=== PATIENT | female | born 1970 | race African-American/Black ===

== ENCOUNTER 2017-01-24 08:26 | Emergency (ER) | payer OTHER ==
[~2017-01-24] VITALS: Ht 165.1 cm; Wt 68.0 kg
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
[2017-01-24] MEDS ORDERED: IBUPROFEN600 MG ORAL (09:35)
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
[2017-01-24 10:08] VITALS: BP 177/89
[2017-01-24 10:10] VITALS: BP 177/89
== END 2017-01-24 10:11 | disposition home or self-care (01) ==
LOC: EMR 09:03
DX: S00.83XA Contusion of other part of head, initial encounter (principal); M54.2 Cervicalgia; Y09 Assault by unspecified means; Y93.9 Activity, unspecified; Y92.9 Unspecified place or not applicable
CPT/HCPCS: 70486; 99284

== ENCOUNTER 2019-01-01 08:28 | Emergency (ER) | payer OTHER ==
[~2019-01-01] VITALS: Ht 170.2 cm; Wt 81.6 kg
[~2019-01-01 08:28] MED LIST: IBUPROFEN600 MG ORAL
[2019-01-01] MEDS ORDERED: NKM (08:34)
[2019-01-01 08:38] VITALS: BP 177/94
--- NOTE | 2019-01-01 08:41 | NUR ---
ED Nurse Note: Patient present at ER c/o Rt earache 06/15. Pt aao x4 and reported that she had flu like a symptom and has been blowing her nose a lot. skin clean and intact. clear nose drainage and yellow scant ear drainage noted. per pt, Rt ear hearing decreased since she started having earache.
--- NOTE | 2019-01-01 08:45 | Emergency Room Report ---
History of Present Illness General Chief Complaint: Earache Source: Patient Present Illness HPI Patient presents with complaints of pain to her right ear Reports that the pain has worsened over the past 2 days Patient has had recent runny nose congestion sore throat Reports taking Benadryl which helped minimally Denies any headache She reports that she has been miserable over the last several days with increased pain as well There has been some discharge noticed from that region Denies any recent trauma Allergies: Coded Allergies: No Known Allergies (Unverified , 01/24/17) Patient History Past Medical History: see triage record Pertinent Family History: none Last Menstrual Period: 2 months ago Reviewed Nursing Documentation: PMH: Agreed; PSxH: Agreed Nursing Documentation-PMH Past Medical History: No Stated History Review of Systems All Other Systems: negative except mentioned in HPI Physical Exam Vital Signs Date Time Temp Pulse Resp B/P (MAP) Pulse Ox O2 Delivery O2 Flow Rate FiO2 01/01/19 08:31 98.4 86 14 177/94 96 Room Air Sp02 EP Interpretation: reviewed, normal General Appearance: well appearing, no apparent distress Head: normocephalic, atraumatic Eyes: bilateral eye PERRL, bilateral eye EOMI ENT: other - The right canal appears edematous however still patent, tympanic membrane is also bulging and erythematous Neck: supple, no meningismus Respiratory: lungs clear, no retraction Cardiovascular #1: regular rate, rhythm, no edema Gastrointestinal: non tender, soft Musculoskeletal: normal inspection Neurologic: alert, oriented x3, responsive Skin: normal color, no rash Lymphatic: no adenopathy Medical Decision Making Diagnostic Impression: Primary Impression: Otitis media Additional Impression: Otitis externa ER Course Patient's clinical history exam and findings are consistent with what appears to be otitis media and otitis externa Patient provided with appropriate medication Will require close repeat evaluation and ENT specialty follow-up Referral was provided and patient stable for close outpatient visit Last Vital Signs Date Time Temp Pulse Resp B/P (MAP) Pulse Ox O2 Delivery O2 Flow Rate FiO2 01/01/19 08:38 98.4 80 14 177/94 96 Room Air Status: unchanged Condition: Stable Scripts Ibuprofen* (MOTRIN*) 600 Mg Tablet 600 MG ORAL Q8H PRN for For Pain, #20 TAB 0 Refills Prov: Brendon Zamora DO 01/01/19 Cetirizine Hcl* (ZYRTEC*) 10 Mg Tablet 10 MG ORAL DAILY for 7 Days, #30 TAB 0 Refills Prov: Brendon Zamora DO 01/01/19 Neomycin/Polymyxin B Sulf/Hc* (CORTISPORIN EAR SOLUTION*) 10 Ml Solution 2 DROP OTIC FOUR TIMES A DAY for 7 Days, #1 EA Instill in affected ear as directed for 7 days Prov: Brendon Zamora DO 01/01/19 Amoxicillin* (AMOXIL*) 500 Mg Capsule 500 MG ORAL THREE TIMES A DAY, #21 CAP Prov: Brendon Zamora DO 01/01/19 Additional Instructions: Patient is provided with the discharge instructions notified to follow up with primary doctor in the next 2-3 days otherwise return to the er with any worsening symptoms. Please note that this report is being documented using [employer] technology. This can lead to erroneous entry secondary to incorrect interpretation by the dictating instrument. Brendon Zamora DO Jan 01, 2019 08:45
[2019-01-01] MEDS ORDERED: IBUPROFEN600 MG ORAL (08:48)
[2019-01-01] MEDS ORDERED: CORTISPORIN EAR10 ML OTIC (08:48)
[2019-01-01] MEDS ORDERED: ZYRTEC10 MG ORAL (08:48)
[2019-01-01] MEDS ORDERED: AMOXICILLIN500 MG ORAL (08:48)
--- NOTE | 2019-01-01 08:49 | NUR ---
ED Nurse Note: Patient reported that she took 600mg of Advil at 0700 this morning. Motrin 600mg is cancelled by SASHA.
[2019-01-01 09:04] VITALS: BP 145/92
--- NOTE | 2019-01-01 09:06 | NUR ---
ER DISCHARGE NOTE: Patient is cleared to be discharged per ERMD, pt is aox4, on room air, with stable vital signs. pt was given dc and prescription instructions, prescriptions were sent electronically to pt's regular pharmacy. pt was able to verbalize understanding, pt id band removed. pt is able to ambulate with steady gait. pt took all belongings.
== END 2019-01-01 09:10 | disposition home or self-care (01) ==
LOC: EMR 09:07
DX: H66.91 Otitis media, unspecified, right ear (principal); H60.91 Unspecified otitis externa, right ear
CPT/HCPCS: 99282

== ENCOUNTER 2019-01-15 14:31 | Emergency (ER) | payer OTHER ==
[~2019-01-15] VITALS: Ht 167.6 cm; Wt 81.6 kg
[~2019-01-15 14:31] MED LIST changes: +AMOXICILLIN500 MG ORAL; +CORTISPORIN EAR10 ML OTIC; +NKM; +ZYRTEC10 MG ORAL
[2019-01-15 14:51] VITALS: BP 155/101
--- NOTE | 2019-01-15 15:18 | Emergency Room Report ---
History of Present Illness General Chief Complaint: Earache Source: Patient Present Illness HPI 48-year-old female presents to the emergency department complaining of tinnitus of the right ear in addition to muffled hearing 2 weeks. The ports intermittent episodes which have progressed and frequency. Patient reports that she also had 2 episodes of vertigo when lying in her bed and turning over to her right side. Patient denies head trauma or fall denies nausea or vomiting. Patient states that she has been recently treated for ear infection and sinusitis with neomycin otic drops and amoxicillin. Patient states that after being prescribed medications as when she had onset of her reading in the ears. Denies Q-tip use, bladder discharge. Patient denies external ear tenderness she denies visual changes or imbalance. Patient denies unilateral weaknesses or difficulty with speech or swallowing. She denies past medical history. Patient denies aggravating or relieving factors at this time. Allergies: Coded Allergies: No Known Allergies (Unverified , 01/24/17) Patient History Past Medical History: see triage record Past Surgical History: none Pertinent Family History: none Last Menstrual Period: menopause Reviewed Nursing Documentation: PMH: Agreed; PSxH: Agreed Nursing Documentation-PMH Past Medical History: No Stated History Review of Systems All Other Systems: negative except mentioned in HPI Physical Exam Vital Signs Date Time Temp Pulse Resp B/P (MAP) Pulse Ox O2 Delivery O2 Flow Rate FiO2 01/15/19 14:35 98.2 80 14 155/101 96 Room Air Sp02 EP Interpretation: reviewed, normal General Appearance: no apparent distress, alert, GCS 15, non-toxic Head: normocephalic, atraumatic Eyes: bilateral eye normal inspection, bilateral eye PERRL ENT: hearing grossly normal, normal voice, uvula midline, moist mucus membranes , nasal congestion, other - the TM of the right canal appears opaque, no erythema, the right canal is somewhat swollen but no appreciable erythema, and no external ear tenderness. the left ear and canal is WNL. no visible TM rupture. Neck: full range of motion, no meningismus Respiratory: chest non-tender, lungs clear, normal breath sounds, speaking full sentences Cardiovascular #1: regular rate, rhythm Musculoskeletal: back normal, gait/station normal, normal range of motion, non- tender Neurologic: alert, oriented x3, responsive, motor strength/tone normal, sensory intact, normal gait, speech normal, other - no facial droop, negative rhomburg. No nystagmus., grossly normal Psychiatric: judgement/insight normal Skin: normal color, no rash, warm/dry, well hydrated Lymphatic: no adenopathy Medical Decision Making PA Attestation Dr. Strange is my supervising Physician whom patient management has been discussed with. Diagnostic Impression: Primary Impression: Right-sided tinnitus Additional Impression: Vertigo ER Course 48-year-old female presents to the emergency department complaining of tinnitus of the right ear in addition to muffled hearing 2 weeks. The ports intermittent episodes which have progressed and frequency. Patient reports that she also had 2 episodes of vertigo when lying in her bed and turning over to her right side. Patient denies head trauma or fall denies nausea or vomiting. Patient states that she has been recently treated for ear infection and sinusitis with neomycin otic drops and amoxicillin. Patient states that after being prescribed medications as when she had onset of her reading in the ears. Denies Q-tip use, bladder discharge. Patient denies external ear tenderness she denies visual changes or imbalance. Patient denies unilateral weaknesses or difficulty with speech or swallowing. She denies past medical history. Patient denies aggravating or relieving factors at this time. she was recently treated for OM/OE with oral and otic abx. pt. took neomycin otic abx, and states that the tinitus began after starting medications. she reports two episodes of vertigo when lying in bed and turning over to the right side. Ddx considered but are not limited to OM, OE, mastoiditis, TM perforation, FB, menieres, labyrinthitis, mass lesion just to name a few. Vital signs: are WNL, pt. is afebrile H&PE are most consistent with medication SE or labyrinthitis--- no focal neurological deficits to suggest emergent condition. ORDERS: none required at this time, the diagnosis is clinical -OTOSCOPY: Right ear canal is swollen and the TM appears scarred. ED INTERVENTIONS: None required at this time. --Pt. is to follow up with ENT specialist Otitis media/externa with amoxicillin and neomycin. It appears and neomycin is nontoxic aminoglycoside and patient describes having symptoms onset after starting this medication therefore I suspect cause of her symptoms are side effect of the medication. Patient will be checked and to discontinue medication and to follow-up with ENT specialist. DISCHARGE: At this time pt. is stable for d/c to home. With PO ABX. Will provide printed patient care instructions, and any necessary prescriptions. Care plan and follow up instructions have been discussed with the patient prior to discharge. Last Vital Signs Date Time Temp Pulse Resp B/P (MAP) Pulse Ox O2 Delivery O2 Flow Rate FiO2 01/15/19 14:51 98.2 80 14 155/101 96 Room Air Disposition: HOME, SELF-CARE Condition: Stable Scripts Meclizine Hcl* (VERTICALM*) 25 Mg Tablet 25 MG ORAL THREE TIMES A DAY for 7 Days, #21 TAB Prov: Arti Restrepo 01/15/19 Cetirizine Hcl/Pseudoephedrine (ZYRTEC-D TABLET) 1 Each Tab.er.12h 1 EACH ORAL Q12HR for 7 Days, #14 TAB Prov: Arti Restrepo 01/15/19 Referrals: [facility],REFERRING (PCP) Patient Instructions: Tinnitus Additional Instructions: Discontinue NEOMYCIN Follow up with an ENT SPECIALIST in 3-5 days, even if your symptoms have resolved. Return sooner to ED if new symptoms occur, or current symptoms become worse. - Please note that this Emergency Department Report was dictated using [employer] software, occasionally this can lead to erroneous entry secondary to interpretation by the dictation equipment. Arti Restrepo Jan 15, 2019 15:18
[2019-01-15] MEDS ORDERED: ZYRTEC-D TABLE1 EACH ORAL (15:27)
[2019-01-15] MEDS ORDERED: VERTICALM25 MG ORAL (15:27)
[2019-01-15 15:49] VITALS: BP 144/99
--- NOTE | 2019-01-15 15:50 | NUR ---
Patient was evaluated, treated and discharged with aftercare instructions by MD/PA
== END 2019-01-15 15:50 | disposition home or self-care (01) ==
LOC: EMR 14:56
DX: H93.11 Tinnitus, right ear (principal); R42 Dizziness and giddiness
CPT/HCPCS: 99283

== ENCOUNTER 2019-02-12 15:09 | Emergency (ER) | payer OTHER ==
[~2019-02-12] VITALS: Ht 167.6 cm; Wt 83.9 kg
[~2019-02-12 15:09] MED LIST changes: +VERTICALM25 MG ORAL; +ZYRTEC-D TABLE1 EACH ORAL
--- NOTE | 2019-02-12 15:14 | NUR ---
ED Nurse Note: Pt is not in the waiting room at this time.
--- NOTE | 2019-02-12 15:45 | NUR ---
ED Nurse Note: pt walked in c/o right earache x 2 days, pt denies any recent injuries reports it started hurting, no drainage reported. will cont monitor.
[2019-02-12 15:48] VITALS: BP 150/97
--- NOTE | 2019-02-12 15:48 | Emergency Room Report ---
History of Present Illness General Chief Complaint: Earache Source: Patient Present Illness HPI 48 Yo female presents to the ED C/O 03/15 in severity right ear pain. progressive 2 days. Patient also reports some nasal congestion and rhinorrhea she denies headache, rashes, trauma to the ear or Q-tip use. Patient does report habitual infections in the right ear and she has an appointment with aircraft landing gear inspector at the end of the month. She denies fevers or chills denies cough denies neck pain or stiffness denies dizziness/vertigo. Denies discharge from the ear or external ear tenderness. Allergies: Coded Allergies: No Known Allergies (Unverified , 01/24/17) Patient History Past Medical History: see triage record Past Surgical History: none Pertinent Family History: none Now: No Reviewed Nursing Documentation: PMH: Agreed; PSxH: Agreed Nursing Documentation-PMH Past Medical History: No Stated History Review of Systems All Other Systems: negative except mentioned in HPI Physical Exam Vital Signs Date Time Temp Pulse Resp B/P (MAP) Pulse Ox O2 Delivery O2 Flow Rate FiO2 02/12/19 15:17 98.8 92 20 97 Room Air Sp02 EP Interpretation: reviewed, normal General Appearance: no apparent distress, alert, GCS 15, non-toxic Head: normocephalic, atraumatic Eyes: bilateral eye normal inspection, bilateral eye PERRL ENT: hearing grossly normal, normal voice, moist mucus membranes, nasal congestion, other - Right ear canal is erythematous and macerated in appearance with Thick/chunky white D/C noted near TM. no TM involvement, no evidence of mastoiditis or preauricular LAD Neck: full range of motion Respiratory: lungs clear, normal breath sounds, speaking full sentences Cardiovascular #1: regular rate, rhythm Musculoskeletal: back normal, gait/station normal, normal range of motion, non- tender Neurologic: alert, oriented x3, responsive, motor strength/tone normal, sensory intact, speech normal, grossly normal Psychiatric: judgement/insight normal Skin: normal color, no rash, warm/dry, well hydrated Lymphatic: no adenopathy Medical Decision Making PA Attestation Dr. Zamora is my supervising Physician whom patient management has been discussed with. Diagnostic Impression: Primary Impression: Otitis externa Qualified Codes: H60.501 - Unspecified acute noninfective otitis externa, right ear ER Course 48 Yo female presents to the ED C/O 03/15 in severity right ear pain. progressive 2 days. Patient also reports some nasal congestion and rhinorrhea she denies headache, rashes, trauma to the ear or Q-tip use. Patient does report habitual infections in the right ear and she has an appointment with aircraft landing gear inspector at the end of the month. She denies fevers or chills denies cough denies neck pain or stiffness denies dizziness/vertigo. Denies discharge from the ear or external ear tenderness. Ddx considered but are not limited to OM, OE, mastoiditis, TM perforation, FB Vital signs: are WNL, pt. is afebrile H&PE are most consistent with otitis externa ORDERS: none required at this time, the diagnosis is clinical -OTOSCOPY: Right ear canal is erythematous and macerated in appearance with Thick/chunky white D/C noted near TM. no TM involvement, no evidence of mastoiditis or preauricular LAD on PE ED INTERVENTIONS: None required at this time. DISCHARGE: At this time pt. is stable for d/c to home. With Otic ABX. Will provide printed patient care instructions, and any necessary prescriptions. Care plan and follow up instructions have been discussed with the patient prior to discharge. Last Vital Signs Date Time Temp Pulse Resp B/P (MAP) Pulse Ox O2 Delivery O2 Flow Rate FiO2 02/12/19 15:17 98.8 92 20 97 Room Air Disposition: HOME, SELF-CARE Condition: Stable Scripts Acetic Acid/Hydrocortisone (HYDROCORTISON-ACETIC ACID SOLN) 10 Ml Drops 5 DROP OT TID for 10 Days, #10 ML Prov: Arti Restrepo 02/12/19 Patient Instructions: Otitis Externa, [id number] Additional Instructions: Take medications as directed. Follow up with an ENT SPECIALIST within 3-5 days, even if your symptoms have resolved. --Please review list of primary care clinics, if you do not already have a primary care provider Return sooner to ED if new symptoms occur, or current symptoms become worse. - Please note that this Emergency Department Report was dictated using [employer] technology software, occasionally this can lead to erroneous entry secondary to interpretation by the dictation equipment. Arti Restrepo February 12, 2019 15:48
[2019-02-12] MEDS ORDERED: HYDROCORTISON-A10 ML OT (15:54)
[2019-02-12 16:00] VITALS: BP 150/97
--- NOTE | 2019-02-12 16:00 | NUR ---
ED Nurse Note: pt cleared to be d/c per ERMD, pt discharge and aftercare instruction provided w/ prescription, pt eduation done via discussion and handout, pt advised to follow up with pcp or return to ed if changes in condition, vss, resp even and unlabored on RA, left w/ all belongings.
== END 2019-02-12 16:00 | disposition home or self-care (01) ==
LOC: EMR 15:56
DX: H60.501 Unspecified acute noninfective otitis externa, right ear (principal)
CPT/HCPCS: 99281

== ENCOUNTER 2019-06-14 16:33 | Emergency (ER) | payer OTHER ==
[~2019-06-14] VITALS: Ht 167.6 cm; Wt 79.4 kg
[~2019-06-14 16:33] MED LIST changes: +HYDROCORTISON-A10 ML OT
[2019-06-14 16:52] VITALS: BP 164/100
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
[2019-06-14] MEDS ORDERED: TYLENOL EXTRA500 MG ORAL (17:33)
--- NOTE | 2019-06-14 17:33 | Emergency Room Report ---
History of Present Illness General Chief Complaint: Head Injury Source: Patient Present Illness HPI 49 YO Female presents to the ED C/O 02/12 in severity tenderness, pain and a swollen bruised area on the right side of her forehead s/p mechanical slip and fall which resulted in her hitting her forehead on a door jam. Denies LOC. she complains of difficulty concentrating/focusing, increased sleepiness, and on occasion difficulty with word recall. Pt. describes taking longer than normal to complete tasks that she does regularly. Denies nausea, vomiting, dizziness, headaches, or difficulty being woken up. Denies Loss of consciousness, Denies amnesia. Denies imbalance, or difficulty with speech or swallowing./ Denies midline neck or back pain. Allergies: Coded Allergies: No Known Allergies (Unverified , 01/24/17) Patient History Past Medical History: see triage record Past Surgical History: none Pertinent Family History: none Last Menstrual Period: menopause Reviewed Nursing Documentation: PMH: Agreed; PSxH: Agreed Nursing Documentation-PMH Past Medical History: No Stated History Review of Systems All Other Systems: negative except mentioned in HPI Physical Exam Vital Signs Date Time Temp Pulse Resp B/P (MAP) Pulse Ox O2 Delivery O2 Flow Rate FiO2 06/14/19 16:44 98.2 75 16 174/97 (122) 96 Room Air Sp02 EP Interpretation: reviewed, normal General Appearance: no apparent distress, alert, GCS 15, non-toxic Head: normocephalic, other - contusion noted to the right side of the forehead Eyes: bilateral eye normal inspection, bilateral eye PERRL, bilateral eye EOMI , bilateral eye other - no photophobia ENT: hearing grossly normal, normal voice Neck: full range of motion, no bony tend Respiratory: lungs clear, normal breath sounds, speaking full sentences Cardiovascular #1: regular rate, rhythm Musculoskeletal: back normal, gait/station normal, normal range of motion, other Neurologic: alert, oriented x3, responsive, motor strength/tone normal, sensory intact, normal gait, speech normal, other - no facial droop. pt. answering questions appropriately giving sufficient amount of details and no obvious delay in response time. Pt. is oriented and knowledgable of her symptoms. , grossly normal Psychiatric: judgement/insight normal, memory normal - able to call the entire event. No amnesia Skin: Ecchymosis/Bruising - Right side of the forehead., other - no lacerations Lymphatic: no adenopathy Medical Decision Making PA Attestation Dr. Strange is my supervising Physician whom patient management has been discussed with. Diagnostic Impression: Primary Impression: Post concussive syndrome ER Course 49 YO Female presents to the ED C/O 02/12 in severity tenderness, pain and a swollen bruised area on the right side of her forehead s/p mechanical slip and fall which resulted in her hitting her forehead on a door jam. Denies LOC. she complains of difficulty concentrating/focusing, increased sleepiness, and on occasion difficulty with word recall. Pt. describes taking longer than normal to complete tasks that she does regularly. Denies nausea, vomiting, dizziness, headaches, or difficulty being woken up. Denies Loss of consciousness, Denies amnesia. Denies imbalance, or difficulty with speech or swallowing./ Denies midline neck or back pain. Ddx considered but are not limited to Fracture, dislocation, contusion, concussion Sprain/Strain/Spasm, hematoma Vital signs: are WNL, pt. is afebrile H&PE are most consistent with contusion, no evidence of focal neurological deficit, no loss of consciousness. ORDERS: none required at this time. PE and HPI do not indicate CT at this time. ED INTERVENTIONS: -D/w Pt. reasoning for not doing Head CT, also discussed red flag symptoms to keep an eye out for that would indicate prompt return to the ED. - Pt. and responsible republican verbalize their understanding and agreement with proposed treatment plan. DISCHARGE: At this time pt. is stable for d/c to home. Will provide printed patient care instructions, and any necessary prescriptions. Care plan and follow up instructions have been discussed with the patient prior to discharge. Last Vital Signs Date Time Temp Pulse Resp B/P (MAP) Pulse Ox O2 Delivery O2 Flow Rate FiO2 06/14/19 16:52 98.5 71 16 164/100 95 Room Air Disposition: HOME, SELF-CARE Condition: Stable Scripts Acetaminophen* (TYLENOL EXTRA STRENGTH*) 500 Mg Tablet 500 MG ORAL Q6H, #30 TAB 0 Refills Prov: Arti Restrepo 06/14/19 Departure Forms: Return to Work Return to Work Date: Jun 18, 2019 Other Restrictions: May return Sooner if Symptoms have resolved. Return to Full Activity: Jun 18, 2019 Patient Instructions: Concussion, Adult, [id number] Additional Instructions: Take medications as directed. Follow up with a Primary Care Provider in 3-5 days, even if your symptoms have resolved. If Symptoms persist Neurology Consult is recommended. Return sooner to ED if new symptoms occur, or current symptoms become worse. - Please note that this Emergency Department Report was dictated using [employer] instructor technology software, occasionally this can lead to erroneous entry secondary to interpretation by the dictation equipment. Arti Restrepo Jun 14, 2019 17:33
[2019-06-14 17:44] VITALS: BP 201/99
--- NOTE | 2019-06-14 17:49 | NUR ---
ER DISCHARGE NOTE: Patient is cleared to be discharged per ERMD, pt is aox4, on room air. pt was given dc and prescription instructions, pt was able to verbalize understanding, pt id band removed. pt is able to ambulate with steady gait. pt took all belongings. Patient is already aware of having hjigh blood pressure and has been advised to follow up with the PCP for a BP recheck. Patient had advised on arrival thatshe is known to have an elevated BP.
== END 2019-06-14 17:40 | disposition home or self-care (01) ==
LOC: EMR 17:20
DX: F07.81 Postconcussional syndrome (principal)
CPT/HCPCS: 99282